=== PATIENT | female | born 1985 | race Caucasian/White ===

== ENCOUNTER 2016-12-04 16:42 | Emergency (ER) | payer BC ==
[~2016-12-04] VITALS: Ht 172.7 cm; Wt 108.0 kg
[2016-12-04] MEDS ORDERED: cefTRIAXone 1 GM (ROCEPHIN) VIAL IM ONE (17:05)
[2016-12-04] MEDS ORDERED: LIDOCAINE PF 1% (XYLOCAINE) 2 ML VIAL INJ ONE (17:10)
[2016-12-04 17:32] VITALS: BP 126/77
== END 2016-12-04 17:33 | disposition home or self-care (01) ==
LOC: ED 16:44
DX: J03.00 Acute streptococcal tonsillitis, unspecified (principal)
CPT/HCPCS: 96372; 99282; J0696; J2001; 99283

== ENCOUNTER 2016-12-15 06:19 | Emergency (ER) | payer BC ==
[~2016-12-15] VITALS: Ht 172.7 cm; Wt 104.5 kg
[2016-12-15 07:17] LABS: BASOPHILS % (AUTO) 0 % (0-2); EOSINOPHILS % (AUTO) 0 % (0-4); LYMPHOCYTES # (AUTO) 1.8 X10^3; MEAN CORPUSCULAR HEMOGLOBIN 28.1 PG (26.0-34.0); MEAN CORPUSCULAR HGB CONC 34.2 g/dL (31.0-37.0); MEAN CORPUSCULAR VOLUME 82 FL (80-100); MEAN PLATELET VOLUME 10.4 FL (6.0-9.5); MONOCYTES # (AUTO) 0.3 X10^3; MONOCYTES % (AUTO) 3 % (3-11); NEUTROPHILS # (AUTO) 9.6 X10^3; NEUTROPHILS % (AUTO) 82 % (51-67); PLATELET COUNT 305 10^3uL (150-450); WHITE BLOOD COUNT 11.65 10^3uL (4.0-11.0)
[2016-12-15 07:33] LABS: ALBUMIN 4.8 g/dL (3.4-5.0); ANION GAP 16.9 MEQ/L (3-15); TOTAL PROTEIN 8.2 g/dL (6.4-8.5)
[2016-12-15 07:42] LABS: BILIRUBIN,URINE Negative (Negative); CLARITY,URINE Clear; COLOR,URINE Yellow; GLUCOSE, URINE (UA) Negative (Negative); LEUKOCYTE ESTERASE ,URINE Negative (Negative); UROBILINOGEN,URINE 0.2 mg/dL (0.2-1.0)
[2016-12-15 07:43] LABS: URINE CENTRIFUGED VOLUME 12 mL
[2016-12-15 07:48] VITALS: BP 114/73
== END 2016-12-15 07:56 | disposition home or self-care (01) ==
LOC: ED 06:21
DX: N89.8 Other specified noninflammatory disorders of vagina (principal); N76.5 Ulceration of vagina
CPT/HCPCS: 36415; 80053; 81003; 81015; 84703; 85025; 86140; 87070; 87210; 87491; 99283; 99284

== ENCOUNTER 2017-01-06 17:37 | Emergency (ER) | payer BC ==
[~2017-01-06] VITALS: Ht 172.7 cm; Wt 108.1 kg
[~2017-01-06 17:37] MED LIST: AMIT25TA9 PO; AMOX500C5 PO; CEPH500C PO; CYCL10TA45 PO; DIAZ5TAB PO; DIAZ5TAB3; DOXY-231 PO; DULO60CA58; FAMC250T2 PO; GBPN300C PO; HYDR-33; HYDR-3702 PO; HYDR-3811 PO; HYDR-87 PO; MIRT15TA PO; PRM25T PO; TIZAN4T; TIZAN4T PO
[2017-01-06 17:47] VITALS: BP 103/73
--- NOTE | 2017-01-07 07:54 | Diagnostic Imaging Report ---
ANKLE, RIGHT, 3 VIEWS COMPARISON: 09/15/2016 INDICATION: Right ankle pain after inversion injury. TECHNIQUE: Non-weight bearing AP, oblique, and lateral views. FINDINGS: No fracture or traumatic malalignment. No osteochondral lesion of the talar dome. No significant soft tissue swelling. IMPRESSION: 1. No acute fracture or traumatic malalignment. Dictated by: Dictated on workstation # [id number]
== END 2017-01-06 19:07 | disposition home or self-care (01) ==
LOC: ED 17:38
DX: S93.491A Sprain of other ligament of right ankle, initial encounter (principal); X50.9XXA Other and unspecified overexertion or strenuous movements or postures, initial encounter; Y93.K9 Activity, other involving animal care; Y92.79 Other farm location as the place of occurrence of the external cause
CPT/HCPCS: 73610; 99282

== ENCOUNTER 2017-01-09 19:20 | Emergency (ER) | payer BC ==
[~2017-01-09] VITALS: Ht 172.7 cm; Wt 106.7 kg
[2017-01-09] MEDS ORDERED: ORPHENADRINE 60 MG/2 ML (NORFLEX) AMP IM ONE (20:05)
[2017-01-09] MEDS ORDERED: HYDROmorphone 2 MG/ML (DILAUDID) 1 ML SYRINGE IM ONE ×2 (20:05→21:15)
[2017-01-09] MEDS ORDERED: ED- CYCLOBENZAPRINE 10 MG (FLEXERIL) 3 TABLETS/BTL PO ONE (22:10)
[2017-01-09] MEDS ORDERED: predniSONE 20 MG (DELTASONE) TABLET PO ONE (22:10)
[2017-01-09] MEDS ORDERED: ED- oxyCODONE/ACETAMINOPHEN 5MG-325MG (PERCOCET) 8 TABLETS/BTL PO ONE (22:10)
[2017-01-09] MEDS ORDERED: OXYC-109 PO (22:13)
[2017-01-09] MEDS ORDERED: CYCL10TA45 PO (22:13)
[2017-01-09] MEDS ORDERED: PRED20TA PO (22:13)
[2017-01-09 22:40] VITALS: BP 119/74
--- NOTE | 2017-01-10 07:37 | Diagnostic Imaging Report ---
PROCEDURE: CT head and CT cervical spine without contrast. TECHNIQUE: Multiple contiguous axial images were obtained through the brain and cervical spine without the use of intravenous contrast. Sagittal and coronal reformations through the cervical spine were then performed. INDICATION: History of craniotomy for Chiari malformation. Head pain. FINDINGS: Comparison with 03/13/2016. Occipital craniotomy is noted consistent with history. The ventricles appear normal with no evidence of hydrocephalus. There is no mass effect. No shift of midline. The cerebellar tonsils extend slightly below the occipital bone but do not appear to be compressed with the craniotomy changes noted. IMPRESSION: 1. Mild Chiari malformation noted with occipital craniotomy. No mass effect or ventricular dilatation noted. Dictated by: Dictated on workstation # [id number]
== END 2017-01-09 22:31 | disposition home or self-care (01) ==
LOC: ED 19:22
DX: M54.2 Cervicalgia (principal); M79.631 Pain in right forearm; M79.621 Pain in right upper arm; M79.641 Pain in right hand; Z87.728 Personal history of other specified (corrected) congenital malformations of nervous system and sense organs
CPT/HCPCS: 70450; 72125; 96372; 99282; J1170; J2360; 99283

== ENCOUNTER 2017-01-24 19:24 | Emergency (ER) | payer BC ==
[~2017-01-24] VITALS: Ht 172.7 cm; Wt 105.4 kg
[~2017-01-24 19:24] MED LIST changes: +OXYC-109 PO; +PRED20TA PO
[2017-01-24] MEDS ORDERED: GBPN100C PO (19:42)
[2017-01-24] MEDS ORDERED: HYDR-3811 PO (19:42)
[2017-01-24] MEDS ORDERED: TIZAN4T PO (19:42)
[2017-01-24 20:21] VITALS: BP 138/77
--- NOTE | 2017-01-24 20:21 | Diagnostic Imaging Report ---
INDICATION: Trauma, calyx carotid on foot. Pain.. TECHNIQUE: 3 views of the right foot. CORRELATION STUDY: None FINDINGS: The osseous structures of the foot are intact. Joint space is maintained. Alignment anatomic. Soft tissues appearing unremarkable. IMPRESSION: 1. Negative for acute findings of the foot. Dictated by: Dictated on workstation # [id number]
== END 2017-01-24 20:23 | disposition home or self-care (01) ==
LOC: ED 19:25
DX: S90.32XA Contusion of left foot, initial encounter (principal); W20.8XXA Other cause of strike by thrown, projected or falling object, initial encounter; Y93.89 Activity, other specified; Y92.009 Unspecified place in unspecified non-institutional (private) residence as the place of occurrence of the external cause
CPT/HCPCS: 99282; 99283

== ENCOUNTER 2017-02-11 18:03 | Emergency (ER) | payer BC ==
[~2017-02-11] VITALS: Ht 172.7 cm; Wt 106.7 kg
[~2017-02-11 18:03] MED LIST changes: +GBPN100C PO
[2017-02-11] MEDS ORDERED: GBPN300C PO (18:26)
[2017-02-11] MEDS ORDERED: BENZ-22 PO (18:26)
[2017-02-11] MEDS ORDERED: PRD10T PO (18:26)
[2017-02-11] MEDS ORDERED: TIZA4CAP6 PO (18:26)
--- NOTE | 2017-02-11 18:45 | NUR ---
Report received, care assumed.
[2017-02-11] MEDS ORDERED: PROMETHAZINE/CODEINE SYRUP 6.25MG-10MG/5ML (PHENERGAN W/COD) UDC PO ONE (19:05)
[2017-02-11 19:24] LABS: BASOPHILS % (AUTO) 0 % (0-2); EOSINOPHILS # (AUTO) 0.3 10^3uL; EOSINOPHILS % (AUTO) 3 % (0-4); LYMPHOCYTES # (AUTO) 4.3 X10^3; MEAN CORPUSCULAR HEMOGLOBIN 28.1 PG (26.0-34.0); MEAN CORPUSCULAR HGB CONC 34.3 g/dL (31.0-37.0); MEAN CORPUSCULAR VOLUME 82 FL (80-100); MEAN PLATELET VOLUME 10.6 FL (6.0-9.5); MONOCYTES % (AUTO) 9 % (3-11); NEUTROPHILS # (AUTO) 6.2 X10^3; NEUTROPHILS % (AUTO) 52 % (51-67); PLATELET COUNT 243 10^3uL (150-450); WHITE BLOOD COUNT 11.84 10^3uL (4.0-11.0)
[2017-02-11 19:32] LABS: ALBUMIN 4.3 g/dL (3.4-5.0); ALKALINE PHOSPHATASE 85 U/L (38-126); ANION GAP 12.1 MEQ/L (3-15); BUN/CREATININE RATIO 23 (10-20); CALCULATED IONIZED CALCIUM 4.1 mg/dL (3.8-4.6); TOTAL PROTEIN 7.2 g/dL (6.4-8.5)
--- NOTE | 2017-02-11 19:42 | Diagnostic Imaging Report ---
Indication: Cough for one week, dyspnea. Discussion: Two views of the chest were obtained, no comparison. No focal consolidation, pleural fluid, or pneumothorax. Normal heart size. No osseous abnormality. Impression: 1. Negative chest. Dictated by: Dictated on workstation # [id number]
[2017-02-11] MEDS ORDERED: ED- PROMETHAZINE/CODEINE SYRUP 6.25MG-10MG/5 ML (PHENERGAN) 118 ML BTL PO ONE (19:45)
[2017-02-11] MEDS ORDERED: ED- ALBUTEROL HFA (VENTOLIN HFA) 8 GM INHALER IH ONE (19:45)
--- NOTE | 2017-02-11 20:11 | NUR ---
Pt dismissed to home with instructions, prepack of cough syrup and inhaler with spacer. Instructions on inhaler provided by RT. Pt stated her understanding. No other concerns or questions. Pt left ambulatory to POV.
[2017-02-11 20:17] VITALS: BP 127/67
== END 2017-02-11 20:11 | disposition home or self-care (01) ==
LOC: ED 18:06
DX: J20.8 Acute bronchitis due to other specified organisms (principal); R74.0 Nonspecific elevation of levels of transaminase and lactic acid dehydrogenase [LDH]; F17.200 Nicotine dependence, unspecified, uncomplicated
CPT/HCPCS: 36415; 71020; 80053; 85025; 86140; 94640; 94664; 99282; 99283